=== PATIENT | female | born 1945 | race Caucasian/White ===

== ENCOUNTER → 2019-09-13 17:07 | Outpatient (CLI) | payer MEDICARE, SELFPAY ==
[2019-09-13 17:28] LABS: Basophils % 0.3 % (0.1-2.0); Eosinophils # 0.1 K/mm3 (0.0-0.4); Eosinophils % 1.7 % (0.1-12.0); Hematocrit 34.7 % (37.0-47.0); Hemoglobin 10.7 g/dL (12.2-16.2); Lymphocytes # 1.2 K/mm3 (0.7-4.5); Lymphocytes % 24.6 % (10-50); Mean Corpuscular HGB Conc 30.8 g/dL (31.8-35.4); Mean Corpuscular Hemoglobin 29.2 pg (27.0-31.2); Mean Corpuscular Volume 94.8 fl (81-99); Monocytes # 0.3 K/mm3 (0.1-1.0); Monocytes % 5.6 % (1.7-9.3); Neutrophils # 3.3 K/mm3 (1.8-7.8); Neutrophils % 67.8 % (37.0-80.0); Platelet Count 150 K/mm3 (142-424); Red Blood Count 3.66 M/mm3 (4.20-5.40); Red Cell Distribution Width 15.5 % (11.5-17.5); White Blood Count 4.9 K/mm3 (4.8-10.8)
== END ==
PROVIDERS: Visit Provider Family Medicine
DX: J44.9 Chronic obstructive pulmonary disease, unspecified (principal)
CPT/HCPCS: 85025

== ENCOUNTER 2019-11-22 17:16 | Observation (INO) | payer MEDICARE, SELFPAY ==
[2019-11-22 17:23] VITALS: BP 150/99; PULSE 87; RESP 32; TEMP 37.1; O2SAT 94; BMI 23.2
--- NOTE | 2019-11-22 17:52 | XR_ITS ---
PROCEDURE: XR CHEST 2V CLINICAL HISTORY: pneumonia COMPARISON: No exams were available for comparison FINDINGS: The cardiomediastinal silhouette and pulmonary vascularity are within normal limits. There is consolidation noted in the lung base posteriorly as seen on the lateral view consistent with pneumonia. Pneumonia may be bilateral in the lung bases medially. COPD No acute bony abnormalities. IMPRESSION: Lower lobe pneumonia possibly bilateral best seen on the lateral view. Suggest following till clear as pulmonary mass is not excluded. Dictated by: Noe Morales MD 11/23/2019 06:00 Noe Morales MD in [place] 11/23/2019 06:00
[2019-11-22 18:14] LABS: Basophils % 0.5 % (0.1-2.0); Eosinophils # 0.1 K/mm3 (0.0-0.4); Eosinophils % 2.3 % (0.1-12.0); Hematocrit 37.4 % (37.0-47.0); Hemoglobin 11.6 g/dL (12.2-16.2); Lymphocytes # 1.2 K/mm3 (0.7-4.5); Lymphocytes % 27.8 % (10-50); Mean Corpuscular HGB Conc 30.9 g/dL (31.8-35.4); Mean Corpuscular Hemoglobin 29.9 pg (27.0-31.2); Mean Corpuscular Volume 96.6 fl (81-99); Mean Platelet Volume 9.8 fl (7.4-10.4); Monocytes # 0.3 K/mm3 (0.1-1.0); Monocytes % 7.9 % (1.7-9.3); Neutrophils # 2.7 K/mm3 (1.8-7.8); Neutrophils % 61.6 % (37.0-80.0); Platelet Count 118 K/mm3 (142-424); Red Blood Count 3.87 M/mm3 (4.20-5.40); White Blood Count 4.4 K/mm3 (4.8-10.8)
[2019-11-22 18:18] LABS: Chloride 95 mmol/L (98-107); Sodium 138 mmol/L (136-145)
[2019-11-22 18:20] LABS: Alanine Aminotransferase 18 U/L (12-78); Aspartate Amino Transferase 40 U/L (14-36); Bilirubin,Total 0.8 mg/dl (0.2-1.3); Blood Urea Nitrogen 11 mg/dl (7-17); Estimated Glomerular Filt Rate 82 ml/min (>60); GFR (African American) 99 ML/MIN (>60)
[2019-11-22 18:21] LABS: Albumin Level 3.7 g/dl (3.5-5.0); Albumin/Globulin Ratio 1.1 (1.1-1.8); Alkaline Phosphatase 76 U/L (38-126); Calcium 8.9 mg/dl (8.4-10.2); Globulin 3.4 g/dL (1.3-3.2); Glucose 105 mg/dl (74-100); Total Protein,Serum 7.1 g/dl (6.3-8.2)
[2019-11-22 18:31] LABS: Carbon Dioxide 41 mmol/L (22.0-30.0)
[2019-11-22 18:37] LABS: Anion Gap 7.1 mEq/L (5-15); Potassium 5.1 mmoL/L (3.5-5.1)
--- NOTE | 2019-11-22 18:48 | HMH.HP ---
*Admission Date: 11/22/19 *Chief complaint: dyspnea and pneumonia *History of present illness: 73 y/o female is well known to me. Longstanding COPD and 02 dependence, was recently admitted to [facility] for bilateral pneumonia. Presented to the office with dyspnea features suggesting recurrent pneumonia and cough. Crackles were noted at the left base with a marked paucity of exchange. She also has a history of upper gi bleed and looked pale. The decision to admit was driven primarily by her dyspnea and the presence of crackles. She has had nausea as well. Was tested for covid mid-october. [facility] History I have reviewed the patient's past medical history: Yes Medical History: Reports:: Congestive Heart Failure, Chronic Obstructive Pulmonary Disease (COPD), Gastroesophageal Reflux Disease(GERD), Hyperlipidemia, Hypertension *Have you ever received a pneumonia vaccine?: Yes *Have you received a flu vaccine this season?: No (na) Other Medical History: Reports: Arthritis, Hypothyroidism Other Surgeries: Yes: Hysterectomy-Total - *Social History Smoking Status: Never smoker Alcohol Intake: never Substance Use Type: denies use *Occupational Status:: retired Housing: house *Travel in the last 8 weeks: None Family Hx:: No significant family history Review of Systems - Constitutional Reports anorexia, Reports fatigue, Reports lack of energy, Reports malaise, Reports weakness, Reports weight loss, Denies chills, Denies fever(s) - Eyes Denies change in vision - ENT Denies neck pain - *Cardiovascular Reports shortness of breath, Reports shortness of breath with activity - *Respiratory Reports chest congestion, Reports cough, Reports shortness of breath, Denies excessive phlegm production, Denies coughing up blood - *Gastrointestinal Reports nausea, Denies abdominal pain - *Genitourinary Denies urinary urgency - *Musculoskeletal Reports abnormal walking, Reports muscle weakness - Integumentary/Breasts Denies yellowing of the skin, Denies skin pain - *Neurologic Reports unsteadiness, Reports weakness, Denies abnormal walking, Denies localized weakness - Psychiatric Denies anxiety, Denies confusion, Denies depression - Endocrine Denies excessive sweating, Denies increased thirst - Hematologic/Lymphatic Denies easy bleeding, Denies easy bruising - Allergic/Immunologic Reports GI upset with certain foods Meds Home Medications Medication Instructions Recorded Confirmed Type albuterol sulfate 90 mcg/actuation 1 puff IH Q6HP PRN 09/13/19 11/23/19 History aerosol inhaler pantoprazole 40 mg tablet,delayed 40 mg PO DAILY 09/13/19 11/22/19 History release simvastatin 20 mg tablet 20 mg PO HS tab 09/13/19 11/22/19 History Hydrocodone/Acetaminophen [[place] 1 tab PO BID 11/22/19 11/22/19 History 7.5-325 Tablet] Levothyroxine Sodium [Synthroid 50 mcg PO DAILY 11/22/19 11/22/19 History 50mcg (0.05mg) tab] Metoprolol Succinate [Metoprolol 100 mg PO DAILY 11/22/19 11/22/19 History Succinate 100mg Tablet*] Fluticasone/Umeclidin/Vilanter 1 each IH DAILY #1 blst.w.dev 11/25/19 Rx [Trelegy Ellipta 100-62.5-25] buspirone 5 mg tablet 5 mg PO BID PRN #180 tab 11/25/19 Rx levoFLOXacin [Levaquin 250mg 250 mg PO DAILY #10 tab 11/25/19 Rx tab] promethazine 25 mg tablet 25 mg PO TIDP PRN #90 tab 11/25/19 Rx Allergies Allergy/AdvReac Type Severity Reaction Status Date / Time No Known Drug Allergies Allergy Unknown Verified 11/22/19 16:21 Exam Vital signs and Labs for Last 24 Hours: Temp Pulse Resp BP Pulse Ox 98.7 F 87 32 H 150/99 H 94 L 11/22/19 17:23 11/22/19 17:23 11/22/19 17:23 11/22/19 17:23 11/22/19 17:23 Laboratory Results - last 24 hr 11/22/19 18:02: WBC 4.4 L, RBC 3.87 L, Hgb 11.6 L, Hct 37.4, MCV 96.6, MCH 29.9, MCHC 30.9 L, RDW 15.0, Plt Count 118 L, MPV 9.8, Neut % (Auto) 61.6, Lymph % (Auto) 27.8, [place] % (Auto) 7.9, Eos % (Auto) 2.3, Baso % (Auto) 0.5, N
[2019-11-22 19:07] LABS: Coronavirus 19 IgG Antibody Negative (Negative); Coronavirus 19 IgM Antibody Negative (Negative)
[2019-11-22 19:17] LABS: ABG Base Excess 12.2 mmol/L (-2.4-2.3); ABG Oxygen Saturation 97 % (90-100); ABG PH 7.34 mmol/L (7.35-7.45); ABG PO2 91.2 mmhg (80-100); ABG TCO2 40.2 mmhg (23-27)
[2019-11-22 19:19] LABS: Allen's Test Acceptable; Source Right Radial
[2019-11-22 19:22] VITALS: O2SAT 97
[2019-11-22 19:22] LABS: ABG PCO2 72.3 mmhg (35.0-45.0)
[2019-11-22 19:30] VITALS: O2SAT 99
--- NOTE | 2019-11-22 19:45 | PC.NURSE ---
Notified MD Khan, speech correction assistant for MD Snyder regarding pt's critical blood gas values. No new orders
[2019-11-22 20:00] VITALS: O2SAT 97
[2019-11-22 20:37] VITALS: BP 114/60; PULSE 79; RESP 20; TEMP 37.2; O2SAT 97
[2019-11-22 21:59] VITALS: PULSE 81; PULSE 85; O2SAT 97
--- NOTE | 2019-11-22 22:00 | PC.NURSE ---
RT gave pt' a neb tx with sodium chloride to induce SPT. BS clear. NPC. No SPt collected at this time. RT left cup for SPT with pt.
[2019-11-23] VITALS (13 sets, daily range): BP systolic 103–130; BP diastolic 54–63; PULSE 71–94; RESP 19–22; TEMP 36.6–36.9; O2SAT 90–99; BMI 23.4
--- NOTE | 2019-11-23 03:39 | PC.NURSE ---
Pt has been up majority of the night but has had no complaints. Pt has been pleasant, A&O x4. Pt has tolerated 3-4L NC all night with sats in the mid-upper 90s. Fine crackles are heard in all lung bases via auscultation. Pt has been afebrile this shift. Bowel sounds active in all 4 quads with abdomen soft and non-tender. Pt is no longer in contact, airborne precautions due to negative COVID swab. Call light is within reach. No other acute changes or complaints at this time. Will continue to monitor.
--- NOTE | 2019-11-23 08:23 | HMH.PHAVTE ---
[facility] Pharmacy VTE Monitoring - Patient Demographics Admission date: 11/22/19 Report Date: 11/23/19 Time: 08:23 Allergies/Adverse Reactions: Patient Allergies No Known Drug Allergies Allergy (Unknown, Verified 11/22/19 16:21) Height: 1.52 m Weight: 54.091 kg Patient Problems: Current Active Problems Pneumonia (Acute) Pallor (Acute) Physical debility (Chronic) History of upper gastrointestinal bleeding (Chronic) Hypoxia (Chronic) COPD (chronic obstructive pulmonary disease) (Chronic) Chronic pain (Chronic) Erosive osteoarthritis of multiple sites (Chronic) - VTE Risk Labs: VTE Related Lab Results Hgb 11.6 g/dL (12.2-16.2) L 11/22/19 18:02 Hct 37.4 % (37.0-47.0) 11/22/19 18:02 Plt Count 118 K/mm3 (142-424) L 11/22/19 18:02 BUN 11 mg/dl (7-17) 11/22/19 18:02 Creatinine 0.70 mg/dl (0.52-1.04) 11/22/19 18:02 Was VTE Risk Assessment Performed: Yes VTE Score: 4 VTE Risk Level: Low Risk - Prophylaxis VTE Prophylaxis Ordered?: Yes Types of VTE Prophylaxis: TEDS Knee High Location of Applied Device: Bilateral Lower Extremeties
--- NOTE | 2019-11-23 09:42 | HMH.PHAINT ---
MEDICATION RECONCILIATION COMPLETED ON PATIENT USING EXTERNAL FILL HISTORY FROM PHARMACY. -EILEEN MATHIS, MIGNOND
--- NOTE | 2019-11-23 12:33 | PC.NURSE ---
DAUGHTER CONTACTED THIS MORNING VIA PHONE TO BRING IN HOME MEDICATIONS. DAUGHTER STATES SHE WILL BRING THEM IN THIS AFTERNOON WHEN SHE COMES TO VISIT. PHARMACY NOTIFIED
--- NOTE | 2019-11-23 15:18 | HMH.ACPN2 ---
Internal Medicine - PN: Subj *Date: 11/23/19 *Time: 08:50 Interval history: pt states she feels better today Exam Vital signs and Labs for Last 24 Hours: Temp Pulse Resp BP Pulse Ox 98.4 F 87 19 112/63 98 11/23/19 11:16 11/23/19 14:18 11/23/19 11:16 11/23/19 11:16 11/23/19 14:18 Laboratory Results - last 24 hr 11/22/19 17:49: Specimen Source Right radial, O2 % 4 lpm, 36%, ABG pH 7.34 L, ABG pCO2 72.3 H, ABG pO2 91.2, ABG HCO3 38.0 H, ABG Total CO2 40.2 H, ABG O2 Saturation 97, ABG Base Excess 12.2 H, Noe Test Acceptable 11/22/19 18:02: WBC 4.4 L, RBC 3.87 L, Hgb 11.6 L, Hct 37.4, MCV 96.6, MCH 29.9, MCHC 30.9 L, RDW 15.0, Plt Count 118 L, MPV 9.8, Neut % (Auto) 61.6, Lymph % (Auto) 27.8, [place] % (Auto) 7.9, Eos % (Auto) 2.3, Baso % (Auto) 0.5, Neut # (Auto) 2.7, Lymph # (Auto) 1.2, [place] # (Auto) 0.3, Eos # (Auto) 0.1, Baso # (Auto) 0.0 11/22/19 18:02: Sodium 138, Potassium 5.1, Chloride 95 L, Carbon Dioxide 41 H*, Anion Gap 7.1, BUN 11, Creatinine 0.70, Estimated GFR 82, Est GFR ( Amer) 99, Glucose 105 H, Calcium 8.9, Total Bilirubin 0.8, AST 40 H, ALT 18, Alkaline Phosphatase 76, Total Protein 7.1, Albumin 3.7, Globulin 3.4 H, Albumin/Globulin Ratio 1.1 11/22/19 18:02: SARS-CoV-2 IgG Ab (Rapid) Negative, SARS-CoV-2 IgM Ab (Rapid) Negative I & O for Last 24 hours: Intake & Output 11/21/19 11/22/19 11/23/19 11/24/19 11:59 11:59 11:59 11:59 Intake Total 460 / 460 240 / 240 Output Total 400 / 400 350 / 350 Balance 60 / 60 -110 / -110 Weight 119 lb 4 oz Microbiology Reports for the Last 24 Hours: Microbiology 11/22/19 18:02 Nasopharyngeal Coronavirus COVID-19 PCR - Final - Constitutional no acute distress, thin - *Routine HEENT Exam Head: Present: normocephalic Eye: Present: PERRL ENT: Present: mucous membranes moist - *Routine Neck Exam Present: supple. Absent: lymphadenopathy - *Routine Respiratory Exam Present: rhonchi, wheezes - *Routine Cardiovascular Exam Present: RRR - *Routine Abdominal Exam Present: soft, normoactive bowel sounds. Absent: tenderness - *Routine Extremities Exam Absent: cyanosis, clubbing, edema - *Routine Skin Exam Present: warm. Absent: rash - *Routine Neurological Exam Present: alert, oriented X3 - Routine Psychiatric Exam Present: normal affect Assessment and Plan (1) Pneumonia Status: Acute Category: Medical Code(s): J18.9 - Pneumonia, unspecified organism (2) COPD (chronic obstructive pulmonary disease) Status: Chronic Qualifiers: COPD type: emphysema Emphysema type: unspecified Qualified Code(s): J43.9 - Emphysema, unspecified Category: Medical Code(s): J44.9 - Chronic obstructive pulmonary disease, unspecified (3) Chronic pain Status: Chronic Qualifiers: Chronic pain type: other chronic pain Qualified Code(s): G89.29 - Other chronic pain Category: Medical Code(s): G89.29 - Other chronic pain (4) Erosive osteoarthritis of multiple sites Status: Chronic Category: Medical Code(s): M15.4 - Erosive (osteo)arthritis (5) History of upper gastrointestinal bleeding Status: Chronic Category: Medical Code(s): Z87.19 - Personal history of other diseases of the digestive system (6) Hypoxia Status: Chronic Category: Medical Code(s): R09.02 - Hypoxemia (7) Pallor Status: Acute Category: Medical Code(s): R23.1 - Pallor (8) Physical debility Status: Chronic Category: Medical Code(s): R53.81 - Other malaise - Assessment and plan all Dx Assessment and Plan for all problems:: rounded with dr saxena all orders per dr saxena
--- NOTE | 2019-11-23 17:13 | PC.NURSE ---
Contacted Marla, senior clinical research associate for Dr. Bowling's office about consult for this pt.
[2019-11-23 18:40] LABS: Thyroid Stimulating Hormone 1.56 uIU/mL (0.465-4.68)
--- NOTE | 2019-11-23 18:44 | PC.NURSE ---
ALERT AND ORIENTED X4. PLEASANT AND COOPERATIVE. PAIN MEDS ADMINISTERED ONCE THIS SHIFT. LUNGS ARE DIMINISHED THROUGHOUT WITH SCATTERED EXPIRATORY WHEEZING. O2 SAT MID 90'S ON 3L NC. NO RESP DISTRESS NOTED. PT MAKES A CLICKING SOUND WITH HER TONGUE AFTER EVERY BREATH. RT ATTEMPTED TO INDUCE SPUTUM. UNABLE TO COLLECT SAMPLE YET. PT AMBULATES INDEPENDENTLY TO BATHROOM WITHOUT PROBLEM, STEADY GAIT. ABDOMEN IS SOFT, FLAT, AND NONTENDER WITH ACTIVE BS IN ALL QUADS. NO REPORTED BM AND VOIDS CLEAR YELLOW URINE VIA TOILET. ADEQUATE PO INTAKE.HEART RATE AND RHYTHM REGULAR. NO EDEMA NOTED. VSS. SAFETY MEASURES IN PLACE AND WILL CONTINUE TO MONITOR
--- NOTE | 2019-11-23 20:45 | CT_ITS ---
PROCEDURE: CT CHEST WO CON Referring Doctor: Carol Munoz Patient Age:73Y The CLINICAL INDICATION: poss mass Short of breath dyspnea COPD previous smoker quit 5 years ago has had breast augmentation the COMPARISON: CR XR CHEST 2V from 11/22/2019 TECHNIQUE: . No IV contrast the the helical axial images obtained with sagittal and coronal reformats and thickened axial images all CT scans at the facility use one or more dose reduction, viz: automated exposure control, ma/kV adjustment per patient size (including targeted exams where dose is matched to indication, i.e. head), or iterative reconstruction technique. FINDINGS: LUNG GALLARDO Hyperexpansion and underlying emphysematous changes throughout the lung gallardo. Dense areas of infiltrate and patchy consolidation are seen at the posterior aspect of lower lobes bilaterally towards posterior sulcus. I suspect scarring in this area from previous inflammatory events but would be suspect of a recurrence pneumonia and atelectasis superimposed on underlying chronic changes at posterior lower lobes bilateral. Any outside studies from [place] both from her bilateral pneumonia and prior would be helpful to know baseline for this patient-(particularly if there is a previous CT chest or abdomen available from an outside facility) The moving slightly more superior, at the posterior left lung base is a focal pleural based density of slightly different character slightly more round and focal (coronal image 56, sagittal 58, axial 54). This pleural based density measures up to 2.3 cm height 2.2 cm wide and 13 mm AP. Although this could be a inflammatory or postinflammatory focus as it is similar to some of the dense areas more inferiorly at posterior sulcus, would recommend follow-up CT chest with contrast 3-4 weeks the after treatment to again evaluate this region. Particularly with its irregular margins such as seen on coronal image 56, could not exclude possibility th developing neoplasm.. (& its peripheral location make it fairly accessible to needle biopsy the remains of concern in follow-up). Also the other areas infiltrate, density and consolidation previously mention more inferiorly at lung bases will benefit from a follow-up CT and a few weeks as well Lack of IV contrast of prohibits if visualization of the internal aspect of the aorta and pulmonary arteries. There is diffuse atherosclerotic calcification of the aorta and aortic arch but of no significant aneurysmal dilatation of aorta. Pulmonary artery appears upper normal size and grossly unremarkable otherwise HEART: The of borderline cardiomegaly coronary artery calcification no significant pericardial effusion. MEDIASTINAL AND HILAR STRUCTURES: No mediastinal or hilar mass evident. No dominant adenopathy. .. PLEURAL SPACES: No significant effusion. No evidence of pneumothorax. BONY STRUCTURES: No acute bony abnormalities apparent. No focal bone lesion. Mild demineralization the LYMPH NODES: No enlarged lymph nodes evident. UPPER ABDOMEN: Un adrenals appear normal top of liver spleen unremarkable but ble. ADDITIONAL FINDINGS: Bilateral breast implants are noted with scattered small low-density areas within them bilaterally. There is some infolding of the implant seen bilaterally suggesting so-called linguine sign which can be reflection the intracapsular rupture. Also specifically I would along the left margin of the left implant demonstrates a small bud like lateral collection as seen on axial image 47; coronal 24, 25; sagittal 32-suggestive of potential small area of contained leak.. A similar focal protrusion/bud is seen from the superior margin of the left implant sagittal imag
[2019-11-24] VITALS (13 sets, daily range): BP systolic 100–140; BP diastolic 55–73; PULSE 80–100; RESP 16–22; TEMP 36.6–37.1; O2SAT 90–99; BMI 24.5
--- NOTE | 2019-11-24 04:37 | PC.NURSE ---
Pt a&O x4. Has not slept well this shift. Has sat up in bed watching tv t/o night. CT to chest done this shift. Report not available at this time. Pt has not c/o any soa. She c/o chronic generalized pain early in shift. Pt requested pain medication and zofran as she uses at home. VS have remained stable. Pt is currently on 3L O2 NC. Lungs are dimished t/o with fine crackles noted to bilateral posterior bases. Medications administered per apr. Call light within reach. Will continue to monitor.
[2019-11-24 07:13] LABS: Basophils % 0.2 % (0.1-2.0); Hematocrit 33.3 % (37.0-47.0); Hemoglobin 9.9 g/dL (12.2-16.2); Lymphocytes # 0.5 K/mm3 (0.7-4.5); Lymphocytes % 18.6 % (10-50); Mean Corpuscular HGB Conc 29.9 g/dL (31.8-35.4); Mean Corpuscular Hemoglobin 28.9 pg (27.0-31.2); Mean Corpuscular Volume 96.8 fl (81-99); Mean Platelet Volume 8.6 fl (7.4-10.4); Monocytes # 0.1 K/mm3 (0.1-1.0); Monocytes % 3.7 % (1.7-9.3); Neutrophils # 2.2 K/mm3 (1.8-7.8); Neutrophils % 76.5 % (37.0-80.0); Platelet Count 109 K/mm3 (142-424); Red Blood Count 3.44 M/mm3 (4.20-5.40); Red Cell Distribution Width 14.9 % (11.5-17.5); White Blood Count 2.9 K/mm3 (4.8-10.8)
[2019-11-24 07:22] LABS: Blood Urea Nitrogen 9 mg/dl (7-17); Calcium 8.6 mg/dl (8.4-10.2); Carbon Dioxide 39 mmol/L (22.0-30.0); Chloride 97 mmol/L (98-107); Creatinine Clearance Estimated 45 mL/min (50-200); Estimated Glomerular Filt Rate 70 ml/min (>60); GFR (African American) 85 ML/MIN (>60); Glucose 137 mg/dl (74-100); Sodium 139 mmol/L (136-145)
--- NOTE | 2019-11-24 09:02 | HMH.ACPN2 ---
Internal Medicine - PN: Subj *Date: 11/24/19 *Time: 09:02 Interval history: looking better - she reports doing ok - uses home o2 at 4l/min and limited to bed to chair ambulation Exam Vital signs and Labs for Last 24 Hours: Temp Pulse Resp BP Pulse Ox 98.8 F 100 H 16 113/58 L 93 L 11/24/19 08:15 11/24/19 08:15 11/24/19 08:15 11/24/19 08:15 11/24/19 08:15 Laboratory Results - last 24 hr 11/22/19 18:06: TSH 1.56 11/24/19 06:32: WBC 2.9 L D, RBC 3.44 L, Hgb 9.9 L, Hct 33.3 L, MCV 96.8, MCH 28.9, MCHC 29.9 L, RDW 14.9, Plt Count 109 L, MPV 8.6, Neut % (Auto) 76.5, Lymph % (Auto) 18.6, [place] % (Auto) 3.7, Eos % (Auto) 1.0, Baso % (Auto) 0.2, Neut # (Auto) 2.2, Lymph # (Auto) 0.5 L, [place] # (Auto) 0.1, Eos # (Auto) 0.0, Baso # (Auto) 0.0 11/24/19 06:32: Sodium 139, Potassium 4.0 D, Chloride 97 L, Carbon Dioxide 39 H, Anion Gap 7.0, BUN 9, Creatinine 0.80, Estimated Creat Clear 45, Estimated GFR 70, Est GFR ( Amer) 85, Glucose 137 H, Calcium 8.6 I & O for Last 24 hours: Intake & Output 11/21/19 11/22/19 11/23/19 11/24/19 11:59 11:59 11:59 11:59 Intake Total 460 / 460 970 / 970 Output Total 400 / 400 850 / 850 Balance 60 / 60 120 / 120 Weight 119 lb 4 oz 125 lb 4 oz - Constitutional no acute distress, chronically ill appearing - *Routine HEENT Exam Head: Present: normocephalic Eye: Present: EOMI, PERRL ENT: Present: mucous membranes dry - *Routine Neck Exam Present: supple. Absent: JVD - *Routine Respiratory Exam Present: decreased breath sounds - *Routine Cardiovascular Exam Present: RRR, murmur - *Routine Abdominal Exam Present: soft - *Routine Extremities Exam Absent: calf tenderness - *Routine Skin Exam Present: intact - *Routine Neurological Exam Present: alert, CN II-XII intact - Routine Psychiatric Exam Present: normal affect Assessment and Plan (1) Pneumonia Status: Acute Category: Medical Code(s): J18.9 - Pneumonia, unspecified organism (2) COPD (chronic obstructive pulmonary disease) Status: Chronic Qualifiers: COPD type: emphysema Emphysema type: unspecified Qualified Code(s): J43.9 - Emphysema, unspecified Category: Medical Code(s): J44.9 - Chronic obstructive pulmonary disease, unspecified (3) Chronic pain Status: Chronic Qualifiers: Chronic pain type: other chronic pain Qualified Code(s): G89.29 - Other chronic pain Category: Medical Code(s): G89.29 - Other chronic pain (4) Erosive osteoarthritis of multiple sites Status: Chronic Category: Medical Code(s): M15.4 - Erosive (osteo)arthritis (5) History of upper gastrointestinal bleeding Status: Chronic Category: Medical Code(s): Z87.19 - Personal history of other diseases of the digestive system (6) Hypoxia Status: Chronic Category: Medical Code(s): R09.02 - Hypoxemia (7) Pallor Status: Acute Category: Medical Code(s): R23.1 - Pallor (8) Physical debility Status: Chronic Category: Medical Code(s): R53.81 - Other malaise (9) Pancytopenia Status: Acute Category: Medical Code(s): D61.818 - Other pancytopenia (10) Thrombocytopenia Status: Acute Category: Medical Code(s): D69.6 - Thrombocytopenia, unspecified (11) Respiratory failure with hypercapnia Status: Acute Qualifiers: Chronicity: acute on chronic Qualified Code(s): J96.22 - Acute and chronic respiratory failure with hypercapnia Category: Medical Code(s): J96.92 - Respiratory failure, unspecified with hypercapnia (12) Hypothyroidism (acquired) Status: Acute Category: Medical Code(s): E03.9 - Hypothyroidism, unspecified
[2019-11-24 10:12] LABS: Troponin I < 0.01 ng/ml (0.00-0.034)
--- NOTE | 2019-11-24 15:12 | PC.NURSE ---
PT AO*4, ABLE TO ANSWER QUESTIONS AND FOLLOW COMMANDS, HAS BEEN UP TO CHAIR FOR MOST OF THE DAY WITH FAMILY AT BEDSIDE, PT CURRENTLY ON 4LNC, O2 SATS IN THE MIDS 90'S T/O SHIFT, SHE STATES THAT SHE WEARS 4LNC WHILE AT HOME, LUNGS SOUNDS ARE DIMINISHED ON AUSCULTATION, SHE HAS NO C/O PAIN THIS SHIFT, DENIES N/V/D, ABD SOFT AND NON-TENDER, SHE HAS AMBULATED TO [facility] PER SELF, NO COMPLAINTS, HAS ASKED WHEN SHE WILL BE ABLE TO GO HOME, CALL LIGHT WITHIN REACH WILL CONTINUE TO MONITOR.
[2019-11-25] VITALS: BP 120/60; PULSE 86; RESP 20; TEMP 36.7; O2SAT 97
--- NOTE | 2019-11-25 03:37 | PC.NURSE ---
PT. C/O SOA WITH MOVEMENT; X1 ASSIST TO BR, BALANCE PROBLEMS WHEN FIRST AMBULATING FROM SEATED POSITION. PT. REPORTS INTERMITTENT NONPRODUCTIVE COUGH WITH DIMINISHED LUNG SOUNDS T/O BILAT. PT. C/O TINGLING PAIN IN FEET RATING 6/10; TX WITH [facility]CO; PT. REPORTED EFFECTIVENESS.
[2019-11-25 04:00] VITALS: BP 105/63; PULSE 75; RESP 16; TEMP 36.7; O2SAT 93
[2019-11-25 05:00] VITALS: BMI 23.2
[2019-11-25 05:35] LABS: POC Glucose,Bedside 116 (70-110)
[2019-11-25 05:55] LABS: Basophils % 0.1 % (0.1-2.0); Eosinophils % 0.3 % (0.1-12.0); Hemoglobin 9.7 g/dL (12.2-16.2); Lymphocytes # 0.5 K/mm3 (0.7-4.5); Lymphocytes % 12.6 % (10-50); Mean Corpuscular HGB Conc 31.2 g/dL (31.8-35.4); Mean Corpuscular Volume 96.2 fl (81-99); Monocytes # 0.2 K/mm3 (0.1-1.0); Monocytes % 4.8 % (1.7-9.3); Neutrophils # 3.3 K/mm3 (1.8-7.8); Neutrophils % 82.3 % (37.0-80.0); Platelet Count 121 K/mm3 (142-424); Red Blood Count 3.23 M/mm3 (4.20-5.40)
[2019-11-25 06:06] LABS: Anion Gap 8.3 mEq/L (5-15); Blood Urea Nitrogen 8 mg/dl (7-17); Calcium 8.8 mg/dl (8.4-10.2); Carbon Dioxide 35 mmol/L (22.0-30.0); Chloride 100 mmol/L (98-107); Creatinine Clearance Estimated 42 mL/min (50-200); Estimated Glomerular Filt Rate 70 ml/min (>60); GFR (African American) 85 ML/MIN (>60); Glucose 126 mg/dl (74-100); Potassium 4.3 mmoL/L (3.5-5.1); Sodium 139 mmol/L (136-145)
[2019-11-25 06:46] VITALS: PULSE 79; PULSE 81; O2SAT 96
[2019-11-25 08:00] VITALS: BP 118/55; PULSE 101; RESP 18; TEMP 36.6; O2SAT 90; O2SAT 94
--- NOTE | 2019-11-25 10:05 | SW/DCPLANNER ---
Addendum entered by Yazmin Zhu 11/25/19 13:29: I have spoke with Loreto at [facility] to confirm that patient information has been received and services will resume tomorrow for this patient. Addendum entered by Yazmin Zhu 11/25/19 10:18: This patient is with [facility] and updated patient information and order for resumption of services will be faxed at time of discharge. Original Note: I have spoke with this patient regarding discharge plans. Patient stated that she resides at home alone and intends on discharging back home once medically stable. Patient is hoping she will discharge today. Patient stated that she has family and friends that check on her often. Patient stated that she is currently receiving services from home health and believes the agency is [facility]. I will follow up with [facility] today. Patient also currently has home O2 and has everything she needs at home. Patient may discharge later today.
[2019-11-25 10:30] VITALS: PULSE 85; PULSE 89; O2SAT 97
--- NOTE | 2019-11-25 10:57 | HMH.DCSUM ---
General - General Admission date:: 11/22/19 Discharge date: 11/25/19 HPI HPI: 73 y/o female is well known to me. Longstanding COPD and 02 dependence, was recently admitted to [facility] for bilateral pneumonia. Presented to the office with dyspnea features suggesting recurrent pneumonia and cough. Crackles were noted at the left base with a marked paucity of exchange. She also has a history of upper gi bleed and looked pale. The decision to admit was driven primarily by her dyspnea and the presence of crackles. She has had nausea as well. Was tested for covid mid-october. Hospital Course Hospital Course: Patient made consistent recovery She was seen in consultation by pulmonary CT was done Plans for follow up with him werer made for 6 weeks Objective Vital signs: Temp Pulse Resp BP Pulse Ox 97.9 F 89 18 118/55 L 97 11/25/19 08:00 11/25/19 10:30 11/25/19 08:00 11/25/19 08:00 11/25/19 10:30 thin, chronically ill appearing - *Routine HEENT Exam Eye: Present: EOMI ENT: Present: mucous membranes moist - *Routine Neck Exam Present: supple - *Routine Respiratory Exam Present: distant breath sounds, diminished air movement. Absent: wheezes - *Routine Cardiovascular Exam Present: RRR - *Routine Abdominal Exam Present: soft, normoactive bowel sounds. Absent: tenderness - *Routine Extremities Exam Absent: cyanosis, clubbing, edema - *Routine Skin Exam Present: warm. Absent: rash Results Labs on day of discharge: Labs from last 24 hours 11/25/19 11/25/19 11/25/19 05:27 05:27 05:18 WBC 4.0 L D RBC 3.23 L Hgb 9.7 L Hct 31.0 L MCV 96.2 MCH 30.0 MCHC 31.2 L RDW 15.0 Plt Count 121 L MPV 9.0 Neut % (Auto) 82.3 H Lymph % (Auto) 12.6 [place] % (Auto) 4.8 Eos % (Auto) 0.3 Baso % (Auto) 0.1 Neut # (Auto) 3.3 Lymph # (Auto) 0.5 L [place] # (Auto) 0.2 Eos # (Auto) 0.0 Baso # (Auto) 0.0 Sodium 139 Potassium 4.3 Chloride 100 Carbon Dioxide 35 H Anion Gap 8.3 BUN 8 Creatinine 0.80 Estimated Creat Clear 42 Estimated GFR 70 Est GFR ( Amer) 85 Glucose 126 H POC Glucose 116 H Calcium 8.8 DS: Diagnosis - Discharge Diagnosis (1) Pneumonia Status: Acute (2) COPD (chronic obstructive pulmonary disease) Status: Chronic (3) Chronic pain Status: Chronic (4) Erosive osteoarthritis of multiple sites Status: Chronic (5) History of upper gastrointestinal bleeding Status: Chronic (6) Hypoxia Status: Chronic (7) Pallor Status: Acute (8) Physical debility Status: Chronic (9) Pancytopenia Status: Acute (10) Thrombocytopenia Status: Acute (11) Respiratory failure with hypercapnia Status: Acute (12) Hypothyroidism (acquired) Status: Chronic Discharge Plan - Patient Discharge Instructions ACTIVITY: Limited activity DIET: continue same diet Patient Instructions: Pneumonia-Adult, Chronic Obstructive Pulmonary Disease, DI for Hypoxia - Follow up Plan Disposition: Home, Self-Halfway Medications: Home Medications Medication Instructions Recorded Confirmed Type albuterol sulfate 90 mcg/actuation 1 puff IH Q6HP PRN 09/13/19 11/23/19 History aerosol inhaler fluticasone furoate 100 2 puffs IH DAILY 09/13/19 11/23/19 History mcg-vilanterol 25 mcg/dose inhalation powder pantoprazole 40 mg tablet,delayed 40 mg PO DAILY 09/13/19 11/22/19 History release promethazine 25 mg tablet 25 mg PO TIDP PRN 09/13/19 11/23/19 History simvastatin 20 mg tablet 20 mg PO HS tab 09/13/19 11/22/19 History Buspirone HCl [Buspar 5mg tablet] 5 mg PO BID 11/22/19 11/23/19 History Hydrocodone/Acetaminophen [[place] 1 tab PO BID 11/22/19 11/22/19 History 7.5-325 Tablet] Levothyroxine Sodium [Synthroid 50 mcg PO DAILY 11/22/19 11/22/19 History 50mcg (0.05mg) tab] Metoprolol Succinate [Metoprolol 1
--- NOTE | 2019-11-25 11:15 | HMH.PULMCON ---
*Admission Date: 11/22/19 *Reason for consult:: Acute hypoxic respiratory failure, COPD exacerbation *History of present illness: Ms. Aparicio is a 73-year-old male history of COPD on long-term oxygen therapy for the last 1 year at 4 L nasal cannula was presented to the clinic and found to be hypoxic and dyspneic and was admitted to the hospital by Dr. Snyder. Patient was recently admitted [place] a month ago for bilateral pneumonia for which she has been discharged in significantly improved. Other questioning patient stated that she is at her baseline even when she presented to the clinic and she denies any worsening shortness of breath, worsening cough, worsening fevers fevers, worsening productive phlegm in the last 1 week. [facility] History Medical History: Reports:: Congestive Heart Failure, Chronic Obstructive Pulmonary Disease (COPD), Coronary Artery Disease, Gastroesophageal Reflux Disease(GERD), Hyperlipidemia, Hypertension Denies:: Cancer, Diabetes Mellitus Type 1, Diabetes Mellitus Type 2, MRSA *Have you ever received a pneumonia vaccine?: Yes *Have you received a flu vaccine this season?: No Other Medical History: Reports: Arthritis, Hypothyroidism Other Surgeries: Yes: Hysterectomy-Total Amputation: No - *Social History Last grade of school completed: GED Smoking Status: Never smoker Alcohol Intake: never Substance Use Type: denies use *Occupational Status:: retired Housing: house Household Members: none *Travel in the last 8 weeks: None Family Hx:: Coronary Artery Disease, Heart Attack, Hyperlipidemia, Hypertension [facility] Pulmonology ROS - Review of Systems Review of systems:: pertinent systems reviewed and negative unless documented below - *Cardiovascular Reports shortness of breath, Reports shortness of breath with activity, Reports leg swelling, Denies chest pain - *Respiratory Respiratory: Yes chest congestion, Yes dyspnea, Yes dyspnea on exertion, No excessive phlegm production, No coughing up blood, No pain on inspiration, No pain with cough, No cough with sputum production, No snoring - *Gastrointestinal Gastrointestingal: Reports: system reviewed and no additional complaints, except as docu - *Musculoskeletal Musculoskeletal: Reports system reviewed and no additional complaints, except as docu - *Neurologic Reports unsteadiness, Reports weakness, Denies abnormal walking, Denies confusion, Denies localized weakness Meds Home Medications Medication Instructions Recorded Confirmed Type albuterol sulfate 90 mcg/actuation 1 puff IH Q6HP PRN 09/13/19 11/23/19 History aerosol inhaler fluticasone furoate 100 2 puffs IH DAILY 09/13/19 11/23/19 History mcg-vilanterol 25 mcg/dose inhalation powder pantoprazole 40 mg tablet,delayed 40 mg PO DAILY 09/13/19 11/22/19 History release promethazine 25 mg tablet 25 mg PO TIDP PRN 09/13/19 11/23/19 History simvastatin 20 mg tablet 20 mg PO HS tab 09/13/19 11/22/19 History Buspirone HCl [Buspar 5mg tablet] 5 mg PO BID 11/22/19 11/23/19 History Hydrocodone/Acetaminophen [[place] 1 tab PO BID 11/22/19 11/22/19 History 7.5-325 Tablet] Levothyroxine Sodium [Synthroid 50 mcg PO DAILY 11/22/19 11/22/19 History 50mcg (0.05mg) tab] Metoprolol Succinate [Metoprolol 100 mg PO DAILY 11/22/19 11/22/19 History Succinate 100mg Tablet*] Fluticasone/Umeclidin/Vilanter 1 each IH DAILY #1 blst.w.dev 11/25/19 Rx [Trelegy Ellipta 100-62.5-25] levoFLOXacin [Levaquin 250mg 250 mg PO DAILY #10 tab 11/25/19 Rx tab] Allergies Allergy/AdvReac Type Severity Reaction Status Date / Time No Known Drug Allergies Allergy Unknown Verified 11/22/19 16:21 Exam Vital signs and Labs for Last 24 Hours: Temp Pulse Resp BP Pulse Ox 97.9 F 89 18 118/55 L 97 11/25/19 08:00 11/25/19 10:30 11/25/19 08:00 11/25/19 08:00 11/25/19 10:30 Laboratory Results - last 24 hr 11/25/19 05:18: POC Glucose 116 H 11/25/19 05:27: WBC 4.0 L D, RBC 3.2
--- NOTE | 2019-11-25 11:19 | HMH.PTEV ---
Physical Therapy Evaluation Rehab PT IP Evaluation Start: 11/25/19 08:29 Freq: ONCE Status: Active Protocol: Document 11/25/19 10:08 JUAN (Rec: 11/25/19 11:06 JUAN [id number]) Subjective/History History History This is the initial physical therapy evaluation for Sujatha Aparicio, a 73 y/o female referred to PT for weakness and SOA. Pt. reported to the ED with dypsnea and had a report of crackle. Pt. has a longstanding history of COPD and O2 dependence. Pt. was also recently admitted into [facility] for bilateral pneumonia. Pt. also has a history of congestive heart failure and hypertension. Note by Stewart Vásquez, SPT Subjective Subjective Pt. reports that she is feeling well but gets short of breath when ambulating and has to catch her breath . She reports that she tries to breath the right way . Rehab PT IP Eval Objective Appearance Patient Behavior Appropriate,Cooperative Patient Orientation Person,Place,Name,Birthday, Year Speech Pattern Clear,Appropriate Ambulation Patient Able to Ambulate Yes Ambulation Observation IP General Gait Pattern Observation No Deviations/Normal Ambulation Distance (feet) 5 Ambulation Assistive Device None Ambulation Ability Contact Guard/Hand Hold Balance Ability to Arise Able, uses arms to help Sitting Balance Steady, safe Standing Balance Steady, wide stance Dynamic Sitting Balance Ability Normal Dynamic Standing Balance Ability Good Transfers Bed Transfer Ability Independent Chair Transfer Ability Independent Sit to Stand Bed Transfer Ability Contact Guard/Hand Hold Sit to Stand Chair Transfer Ability Supervision/Stand by Rehab PT IP prob,goals,plan Problems Date of Evaluation: 11/25/19 PT IP Problems Gait,Balance,Self care,Safety Rehab Potential Rehab Potential Fair Equipment Needs Assistive Devices Straight Cane Plan PT Intervention Plan Gait,Balance,Self care,Safety, Therapeutic Exercise PT Plan Frequency BID Duration LOS Discharge Goals Bed Transfer Abili
--- NOTE | 2019-11-25 11:22 | HMH.OTEV ---
OT Inpatient Evaluation Rehab OT IP Evaluation Start: 11/25/19 08:29 Freq: ONCE Status: Complete Protocol: Document [facility]/25/19 11:12 [facility] (Rec: 11/25/19 11:22 [facility] [id number]) Rehab OT IP Assessment Subjective History Pt oriented x 3 on arrival. Pt was admitted on 11/22/19 for worsening PNA. She recently had a hospital stay at [place]. Pt has history of CHF, COPD, GERD, Hyperlipidemia, HTN, and Hypothyroidism. Pt reports she lives at home alone. Pt claims she is independent with dressing, and able to give herself a sponge bath. However, she is dependent upon family to complete all other IADL's. She does not use a walker during ambulation. Pt is on 4L of 02 at all times. Subjective I just get short of breath so easy. Objective Patient Orientation Person,Place,Birthday Upper Extremity Gross ROM WFL Bed Mobility bed mobility-scooting,bed mobility - supine/sit,bed mobility - rolling Assist Level Supervision/Stand by Transfer Training Sit/Stand Transfer Assist Level Contact Guard/Hand Hold Chair Transfer Ability Contact Guard/Hand Hold Chair Transfer Technique Sit to/from Ambulatory Chair Transfer Assistive Devices None Rehab OT IP prob,goals,plan Problems Date of Evaluation: 11/25/19 OT IP Problems Bed Mobility,Transfers,Gait, Balance,Self care,Safety Rehab Potential Rehab Potential Good Equipment Needs Assistive Devices None / NA Plan OT intervention Plan Bed Mobility,Transfers,Gait, Balance,Self care,Safety, Therapeutic Exercise OT Plan Frequency Daily Duration LOS Discharge Goals Bed Mobility Ability Standby Assistance Sit to Stand Chair Transfer Ability Supervision/Stand by Chair Transfer Ability Supervision/Stand by Chair Transfer Technique Sit to/from Ambulatory Feeding Ability Independent Lower Body Dressing Ability Standby Assistance Upper Body Dressing Ability Standby Assistance Bathing Ability Standby Assistance Performin
--- NOTE | 2019-11-25 12:36 | PC.NURSE ---
THIS MORNING PT/OT CAME TO SEE PT AND THEY STATED PT WAS ABLE TO GET UP OKAY WITH VERY MINIMAL ASSISTANCE. HOWEVER PT WAS VERY SOA. ACCORDING TO PT SHE IS ALWAYS SOA BUT SHE FEELS LIKE IF SHE COULD GO HOME SHE WOULD DO MUCH BETTER. PT'S DAUGHTER CALLED AND STATED SHE WAS COMFORTABLE WITH PT COMING HOME. PT WILL NEEDS TO FOLLOW UP WITH PCP AND PULMONOLOGY. PT WILL NEED A REPEAT CT. PT AMBULATED TO THE BATHROOM W/O DIFFICULTY.
[2019-11-26 09:11] LABS: Peripheral Smear Review Scanned Result
== END 2019-11-25 12:35 | disposition home or self-care (01) ==
PROVIDERS: Emergency Medicine; Nurse Practitioner Family; Admitting Provider Family Medicine; PCP Family Medicine; Visit Provider Family Medicine
DX: J18.9 Pneumonia, unspecified organism (principal); J96.22 Acute and chronic respiratory failure with hypercapnia; J44.1 Chronic obstructive pulmonary disease with (acute) exacerbation; Z99.81 Dependence on supplemental oxygen; Z79.52 Long term (current) use of systemic steroids; Z79.899 Other long term (current) drug therapy; I50.9 Heart failure, unspecified; I11.0 Hypertensive heart disease with heart failure; E03.9 Hypothyroidism, unspecified; E78.5 Hyperlipidemia, unspecified; M15.4 Erosive (osteo)arthritis
CPT/HCPCS: G0379; 36415; 71046; 71250; 80048; 80053; 82803; 82962; 84443; 84484; 85025; 86328; 94640; 94761; 97161; 97166; G0378; J1956; J2405; J2543; U0003